=== PATIENT | male | born 1980 | race Caucasian/White ===

== ENCOUNTER 2020-01-21 10:01 | Emergency (ER) | payer SELFPAY ==
[~2020-01-21] VITALS: Ht 167.6 cm; Wt 59.0 kg
[2020-01-21 10:04] VITALS: BP 108/69
[2020-01-21] MEDS ORDERED: LORAZEPAM 0.5MG TABLET PO ONE (10:30)
== END 2020-01-21 10:27 | disposition home or self-care (01) ==
LOC: ER 10:01
DX: F41.1 Generalized anxiety disorder (principal); F20.9 Schizophrenia, unspecified; R03.0 Elevated blood-pressure reading, without diagnosis of hypertension
CPT/HCPCS: 99283

== ENCOUNTER 2020-02-01 02:55 | Emergency (ER) | payer MEDICARE ==
[~2020-02-01] VITALS: Ht 167.6 cm; Wt 63.0 kg
[2020-02-01 06:25] VITALS: BP 104/64
== END 2020-02-01 06:33 | disposition home or self-care (01) ==
LOC: ER 02:55
DX: F31.9 Bipolar disorder, unspecified (principal); F20.9 Schizophrenia, unspecified; Z59.0 Homelessness
CPT/HCPCS: 99283

== ENCOUNTER 2020-02-01 09:08 | Emergency (ER) | payer MEDICARE ==
[~2020-02-01] VITALS: Ht 167.6 cm; Wt 58.0 kg
[2020-02-01 09:56] LABS: CLARITY URINE CLEAR (CLEAR); COLOR URINE YELLOW (YELLOW); KETONES URINE NEGATIVE (NEGATIVE); LEUKOCYTE ESTERASE URINE NEGATIVE (NEGATIVE); NITRITE URINE NEGATIVE (NEGATIVE); OCCULT BLOOD URINE 2+ (NEGATIVE); PH URINE 5.5 (4.5-8.0); PROTEIN URINE NEGATIVE (NEGATIVE); SPECIFIC GRAVITY URINE 1.024 (1.005-1.030); UROBILINOGEN URINE 0.2 E.U./dL (0.2-1.0)
[2020-02-01 10:46] VITALS: BP 122/78
== END 2020-02-01 10:44 | disposition home or self-care (01) ==
LOC: ER 09:08
DX: R35.0 Frequency of micturition (principal); J45.909 Unspecified asthma, uncomplicated; Z90.49 Acquired absence of other specified parts of digestive tract
CPT/HCPCS: 81003; 82962; 99282; 99283